=== PATIENT | male | born 1950 | race American Indian/Alaskan Native ===

== ENCOUNTER 2018-02-28 07:30 | Outpatient (CLI) | payer MEDICARE, BC | END 2018-02-28 07:31 | disposition home or self-care (01) | LOC: RT 07:30 | PROVIDERS: ATTEND Internal Medicine Cardiovascular Disease | DX: I48.1 Persistent atrial fibrillation (principal) | CPT/HCPCS: 93005 ==

== ENCOUNTER 2020-03-20 20:48 | Emergency (ER) | payer MEDICARE, BC ==
--- NOTE | 2020-03-20 21:05 | ED Physician Documentation ---
PD HPI CHEST PAIN - Stated complaint Stated Complaint: CP - Chief complaint Chief Complaint: Cardiac - History obtained from History obtained from: Patient - History of Present Illness Timing - onset: Today (this afternoon) Timing - onset during: Light activity Timing - details: Abrupt onset, Intermittant Pain level now: 1 Quality: Dull Location: Left chest Radiation: Other (does not radiate) Improved by: Rest Worsened by: Exertion Associated symptoms: No: Shortness of air, Diaphoresis, Nausea, Vomiting, Feeling faint / dizzy, Cough Similar symptoms before: Has not had sx before Recently seen: Not recently seen - Additional information Additional information: c/o left-sided chest pain, episodic since this afternon, onset when he was walking down steps at home. Episodes are generally improved with rest, exacerbated with exertion. He took 325mg ASA tonight and an extra dose of metoprolol (usually 25mg QAM, but took a dose tonight for second dose of the day; he did so because sometimes he has chest discomfort with his atrial fibrillation). Review of Systems Constitutional: denies: Fever Cardiac: reports: Chest pain / pressure. denies: Palpitations, Pedal edema, Calf pain Respiratory: reports: Reviewed and negative GI: reports: Reviewed and negative Musculoskeletal: denies: Extremity swelling PD PAST MEDICAL HISTORY - Past Medical History Past Medical History: Yes Cardiovascular: Atrial fibrillation - Past Surgical History Past Surgical History: No - Present Medications Home Medications: Ambulatory Orders Medication Instructions Recorded Confirmed Metoprolol Succinate [Toprol Xl] 1 tab PO DAILY 03/20/20 03/20/20 - Allergies Allergies/Adverse Reactions: Allergies Allergy/AdvReac Type Severity Reaction Status Date / Time No Known Drug Allergies Allergy Verified 03/20/20 20:59 - Living Situation Living Arrangement: reports: At home PD ED PE NORMAL - Vitals Vital signs reviewed: Yes - General General: Alert and oriented X 3, No acute distress, Well developed/nourished - HEENT HEENT: Moist mucous membranes - Neck Neck: Supple, no meningeal sign - Cardiac Cardiac: No murmur - Respiratory Respiratory: No respiratory distress, Clear bilaterally - Abdomen Abdomen: Soft, Non tender - Extremities Extremities: No edema PD ED PE EXPANDED - Cardiac Cardiac: Regular Rate, Irregularly irregular Results - Vitals Vitals: Vital Signs - 24 hr 10/03/20 10/03/20 10/03/20 20:50 21:50 22:30 Temperature 37.3 C Heart Rate 60 69 64 Respiratory 18 18 24 Rate Blood Pressure 177/103 H 145/73 H 158/70 H O2 Saturation 99 96 97 03/20/20 23:08 Temperature Heart Rate 71 Respiratory 16 Rate Blood Pressure 151/72 H O2 Saturation 99 Oxygen O2 Source Room air - EKG (time done) No standard instances Rate: Rate (enter#) (57) Rhythm: Atrial fibrillation [place]: Normal Intervals: Normal IA QRS: Normal Ischemia: Normal ST segments - Labs Labs: Laboratory Tests 03/20/20 03/20/20 03/20/20 21:08 21:08 21:08 WBC 7.8 RBC 4.97 Hgb 15.9 Hct 46.3 MCV 93.2 MCH 32.0 H MCHC 34.3 RDW 12.7 Plt Count 209 MPV 11.4 Neut # (Auto) 3.8 Lymph # (Auto) 2.7 [place] # (Auto) 0.8 Eos # (Auto) 0.4 Baso # (Auto) 0.1 Absolute Nucleated RBC 0.00 Nucleated RBC % 0.0 PT 13.6 H INR 1.2 APTT 32.4 Sodium 139 Potassium 3.9 Chloride 100 L Carbon Dioxide 27 Anion Gap 12.0 BUN 20 Creatinine 1.2 Estimated GFR (MDRD) 60 L Glucose 96 Calcium 9.7 Total Bilirubin 1.3 H AST 29 ALT 33 Alkaline Phosphatase 62 Troponin I High Sens Total Protein 7.8 Albumin 4.7 Globulin 3.1 Albumin/Globulin Ratio 1.5 Lipase 62 H 03/20/20 21:08 WBC RBC Hgb Hct MCV MCH MCHC RDW Plt Count MPV Neut # (Auto) Lymph # (Auto) [place] # (Auto) Eos # (Auto) Baso # (Auto) Absolute Nucleated RBC Nucleated RBC % PT INR APTT Sodium Potassium Chloride Carbon Dioxide Anion Gap BUN Creatinine Estimated GFR (MDRD) Glucose Calcium Total Bilirubin AST ALT Alkaline Phosphatase Troponin I High Sens 5.6 Total Protein Albumin Globulin Albumin/Globulin Ratio Lipase - Rads (name of study) chest xray Radiology: Prelim report reviewed, See rad report PD MEDICAL DECISION MAKING - ED course Complexity details: reviewed results, re-evaluated patient, considered differential, d/w patient ED course: patient says he is chronically in atrial fibrillation and that he and his physician agreed with no anticoagulant rx. Symptoms resolved prior to arrival, and patient remained asymptomatic during ED stay. Departure - Departure Disposition: 01 Home, Self Care Clinical Impression: Chest pain Qualifiers: Chest pain type: unspecified Qualified Code(s): R07.9 - Chest pain, unspecified Condition: Good Instructions: ED Chest Pain Atypical Unkn Cause Follow-Up: Juarez Ruvalcaba MD [Primary Care Provider] - Within 1 week Discharge Date/Time: 03/20/20 23:10
[2020-03-20 21:16] LABS: BASOPHILS # (AUTO) 0.1 10^3/uL (0.0-0.1); BASOPHILS % (AUTO) 0.8 %; EOSINOPHILS # (AUTO) 0.4 10^3/uL (0.0-0.7); EOSINOPHILS % (AUTO) 4.8 %; HGB - HEMOGLOBIN 15.9 g/dL (14.0-18.0); LYMPHOCYTES # (AUTO) 2.7 10^3/uL (1.5-3.5); LYMPHOCYTES % (AUTO) 34.6 %; MEAN CORPUSCULAR HGB CONC 34.3 g/dL (32.0-36.0); MEAN CORPUSCULAR VOLUME 93.2 fL (80.0-94.0); MEAN PLATELET VOLUME 11.4 fL (7.4-11.4); MONOCYTES # (AUTO) 0.8 10^3/uL (0.0-1.0); MONOCYTES % (AUTO) 10.2 %; NEUTROPHILS # (AUTO) 3.8 10^3/uL (1.5-6.6); NEUTROPHILS % (AUTO) 49.3 %; PLT - PLATELET COUNT 209 10^3/uL (130-450); RED BLOOD COUNT 4.97 10^6/uL (4.70-6.10); RED CELL DISTRIBUTION WIDTH 12.7 % (12.0-15.0); WHITE BLOOD COUNT 7.8 x10^3/uL (4.8-10.8)
[2020-03-20 21:23] LABS: INR 1.2 (0.8-1.2); PT - PROTHROMBIN TIME 13.6 secs (9.9-12.6)
[2020-03-20 21:30] LABS: ALBUMIN 4.7 g/dL (3.2-5.5); ALBUMIN/GLOBULIN RATIO 1.5 (1.0-2.2); BILIRUBIN,TOTAL 1.3 mg/dL (0.2-1.0); CALCIUM 9.7 mg/dL (8.5-10.3); CREATININE 1.2 mg/dL (0.6-1.2); TOTAL PROTEIN 7.8 g/dL (6.7-8.2)
[2020-03-20 21:31] LABS: PARTIAL THROMBOPLASTIN TIME 32.4 secs (24.9-33.3)
--- NOTE | 2020-03-20 21:51 | XRAY Report ---
PROCEDURE: Chest 2 View X-Ray INDICATIONS: chest pain TECHNIQUE: 4 views of the chest. COMPARISON: None. FINDINGS: Surgical changes and devices: None. Lungs and pleura: No pleural effusions or pneumothorax. Lungs are clear. Mediastinum: Mediastinal contours are normal. Heart size is normal. Bones and chest wall: No suspicious bony abnormalities. Soft tissues appear unremarkable. Degenera tive changes are seen in the thoracic spine. No definite displaced rib fracture is seen. IMPRESSION: No acute cardiopulmonary abnormality. Reviewed by: Bud Figueroa MD on 03/20/2020 9:50 PM PDT Approved by: Bud Figueroa MD on 03/20/2020 9:50 PM PDT Station ID: [id number]
[2020-03-20 23:09] VITALS: BP 151/72
== END 2020-03-20 23:10 | disposition home or self-care (01) ==
LOC: ED 20:48
DX: R07.9 Chest pain, unspecified (principal); I48.20 Chronic atrial fibrillation, unspecified
CPT/HCPCS: 36415; 71046; 80053; 83690; 84484; 85025; 85610; 85730; 93005; 99284

== ENCOUNTER 2020-05-25 07:00 | Outpatient (CLI) | payer MEDICARE, BC ==
[2020-05-25 16:08] LABS: CALCIUM 9.5 mg/dL (8.5-10.3); CREATININE 1.1 mg/dL (0.6-1.2)
== END 2020-05-25 23:59 | disposition home or self-care (01) ==
LOC: LAB 07:00
PROVIDERS: ATTEND Internal Medicine
DX: R10.9 Unspecified abdominal pain (principal)
CPT/HCPCS: 36415; 80048

== ENCOUNTER 2020-05-26 14:21 | Outpatient (CLI) | payer MEDICARE, BC ==
[2020-05-26] MEDS ORDERED: IOVERSOL 320 100 ML VIAL IVP ONE ×2 (14:38→15:22)
[2020-05-26] MEDS ORDERED: IOVERSOL 320 50 ML VIAL ONE (14:38)
[2020-05-26] MEDS ORDERED: IOVERSOL 320 50 ML VIAL PO ONE (15:21)
--- NOTE | 2020-05-26 15:48 | CT Report ---
PROCEDURE: Abdomen/Pelvis W INDICATIONS: LT INGUINAL HERNIA CONTRAST: IV CONTRAST: Optiray 320 ml: 100 PO CONTRAST: Optiray 320 ml50 TECHNIQUE: After the administration of contrast, 5 mm thick sections acquired from the diaphragms to the symphy sis. 5 mm thick coronal and sagittal reformats were acquired. For radiation dose reduction, the fol lowing was used: automated exposure control, adjustment of mA and/or kV according to patient size. COMPARISON: None. FINDINGS: Image quality: Excellent. ABDOMEN: Lung bases: Lung bases are clear. Heart size is normal. Solid organs: Hepatic foci statistically representing cysts although technically indeterminate due to small size. S pleen unremarkable Gallbladder contracted otherwise unremarkable Biliary system is non dilated. Pancreas enhances norm ally. No adrenal nodules. Kidneys demonstrate normal size and enhancement, without hydronephrosis. Peritoneum and bowel: Bowel loops demonstrate normal wall thickness and caliber. No free fluid or a ir. Colonic diverticulosis incidentally noted. Appendix is normal. Nodes and vessels: No retroperitoneal or mesenteric adenopathy by size criteria. Aorta and inferior vena cava are normal in size. Miscellaneous: No ventral hernias. PELVIS: Genitourinary: Bladder wall thickness is normal. Miscellaneous: No inguinal hernias or adenopathy. Bones: Spondylosis and facet arthropathy. No vertebral body compression fractures. IMPRESSION: No inguinal hernia identified. Incidentally noted colonic diverticulosis Additional chronic and incidental findings as above. Reviewed by: Guanaco Malone MD on 05/26/2020 3:47 PM PST Approved by: Guanaco Malone MD on 05/26/2020 3:47 PM PST Station ID: [id number]
== END 2020-05-26 14:22 | disposition home or self-care (01) ==
LOC: DI 14:21
PROVIDERS: ATTEND Internal Medicine
DX: R10.9 Unspecified abdominal pain (principal); K57.30 Diverticulosis of large intestine without perforation or abscess without bleeding
CPT/HCPCS: 74177; Q9967

== ENCOUNTER 2020-06-17 17:05 | Outpatient (CLI) | payer MEDICARE, BC | END 2020-06-17 17:06 | disposition home or self-care (01) | LOC: COV 17:05 | PROVIDERS: ATTEND Surgery | DX: Z01.812 Encounter for preprocedural laboratory examination (principal); K40.20 Bilateral inguinal hernia, without obstruction or gangrene, not specified as recurrent; Z20.828 Contact with and (suspected) exposure to other viral communicable diseases ==

== ENCOUNTER 2020-06-24 10:11 | Day surgery (SDC) | payer MEDICARE, BC ==
[2020-06-24] MEDS ORDERED: LACTATED RINGERS 1,000 ML IV ONE ×3 (10:25→16:45)
[2020-06-24] MEDS ORDERED: ceFAZolin 2 GM/50 ML 2 GM/50 ML BAG IV ONE (10:30)
--- NOTE | 2020-06-24 11:54 | ANESTHESIA ---
Pre-Anesthesia VS, & Labs - Diagnosis inguinal hernia - Procedure bilateral inguinal hernia repair Vital Signs: Temp Pulse Resp BP Pulse Ox 36.3 C L 73 16 160/92 H 98 06/24/20 10:31 06/24/20 10:31 06/24/20 10:31 06/24/20 10:31 06/24/20 10:31 Height: 6 ft 8 in Weight (kg): 105 kg Body Mass Index: 25.4 BMI Classification: Overweight - NPO >8 hours - Lab Results Lab results reviewed: Yes Home Medications and Allergies Metoprolol Succinate [Toprol Xl] 1 tab PO DAILY 03/20/20 Allergies/Adverse Reactions: Allergies Allergy/AdvReac Type Severity Reaction Status Date / Time No Known Drug Allergies Allergy Verified 03/20/20 20:59 Anes History & Medical History - Anesthetic History Anesthesia Complications: reports: No previous complications Family history of Anesthesia Complications: Denies Family history of Malignant Hyperthermia: Denies - Medical History Cardiovascular: reports: Atrial fibrillation Pulmonary: reports: None Gastrointestinal: reports: None Urinary: reports: None Musculoskeletal: reports: None Endocrine/Autoimmune: reports: None Skin: reports: None Smoking Status: Never smoker - Surgical History Eyes Ears Nose Throat (EENT): Tonsil/Adenoidectomy Results - EKG Results EKG Comparison: Reviewed EKG Exam General: Alert, Oriented x3, Cooperative, No acute distress Dental: WNL Mouth Openin Fingerbreadth Neck Mobility: Normal Mallampati classification: II Respiratory: Lungs clear, Normal breath sounds, No respiratory distress, No accessory muscle use Cardiovascular: Normal S1, Normal S2 Plan Anesthesia Type: General Consent for Procedure(s) Verified and Reviewed: Yes Code Status: Attempt Resuscitation ASA classification: 2-Mild systemic disease Is this case an emergency?: No
[2020-06-24] MEDS ORDERED: LIDOCAINE-MPF 2% 5 ML VIAL ONE (12:01)
[2020-06-24] MEDS ORDERED: fentaNYL 100 MCG/2 ML VIAL ONE ×2 (12:01→13:05)
[2020-06-24] MEDS ORDERED: KETOROLAC 30 MG/ML VIAL ONE (12:02)
[2020-06-24] MEDS ORDERED: PROPOFOL 200 MG/20 ML VIAL IVP ONE (12:02)
[2020-06-24] MEDS ORDERED: DEXAMETHASONE 4 MG/ML VIAL ONE (12:02)
[2020-06-24] MEDS ORDERED: ONDANSETRON 4 MG/2 ML VIAL ONE (12:02)
[2020-06-24] MEDS ORDERED: BUPIVACAINE 0.5% PF 30 ML VIAL SUBQ ONE ×2 (12:08→14:22)
[2020-06-24] MEDS ORDERED: BUPIVACAINE 0.5% PF 30 ML VIAL ONE (12:08)
[2020-06-24] MEDS ORDERED: GLYCOPYRROLATE 1 MG/5 ML VIAL ONE (12:47)
[2020-06-24] MEDS ORDERED: ePHEDrine 50 MG/ML VIAL IVP ONE (13:05)
[2020-06-24] MEDS ORDERED: PHENYLEPHRINE 10 MG/ML VIAL ONE (13:27)
[2020-06-24] MEDS ORDERED: MORPHINE 2 MG/ML CARPUJECT IVP PRN (14:55)
[2020-06-24] MEDS ORDERED: NALOXONE 0.4 MG/ML VIAL IVP PRN (14:55)
[2020-06-24] MEDS ORDERED: ONDANSETRON 4 MG/2 ML VIAL IVP PRN (14:55)
[2020-06-24] MEDS ORDERED: fentaNYL 100 MCG/2 ML VIAL IVP PRN (14:55)
[2020-06-24] MEDS ORDERED: ePHEDrine 50 MG/ML VIAL IVP PRN (14:55)
[2020-06-24] MEDS ORDERED: HYDROmorphone 0.5 MG/0.5 ML SYRINGE IVP PRN (14:55)
[2020-06-24] MEDS ORDERED: METOCLOPRAMIDE 10 MG/2 ML VIAL IVP PRN (14:55)
[2020-06-24] MEDS ORDERED: ATROPINE ABBOJECT 1 MG/10 ML SYRINGE IVP PRN (14:55)
--- NOTE | 2020-06-24 14:55 | OPERATIVE REPORT ---
Operative Report - General Procedure Date: 06/24/20 Planned Procedure: BILATERAL inguinal herniorraphy Pre-Op Diagnosis: BILATERAL inguinal hernia Procedure Performed: BILATERAL indirect inguinal herniorrhaphy with mesh BILATERAL excision card lipoma Post Op Diagnosis: BILATERAL indirect inguinal hernias with BILATERAL cord lipomas - Procedure Note Primary Surgeon: Onel Frank MD Anesthesia Provider: GLORIA Perez Anesthesia Technique: General LMA, Local (30 mL of 1/2% marcaine) IV Fluids (mL): 1,600 Estimated Blood Loss (mL): 5 Drain/Tube Type: Other (None.) Indications: As above. Complications: None. - Other Other Information/Narrative: Dictation service ([employer]) has been terminated for this software - please refer to detailed operative report done separately.
[2020-06-24] MEDS ORDERED: LACTATED RINGERS 1,000 ML IV SCH (15:00)
--- NOTE | 2020-06-24 15:57 | ANESTHESIA POST OP EVALUATION ---
Anesthesia Post Eval - Post Anesthesia Eval Vitals: Last Vital Signs Temp 36.3 C L 06/24/20 15:15 Pulse 80 06/24/20 15:31 Resp 15 06/24/20 15:31 BP 155/79 H 06/24/20 15:31 Pulse Ox 100 06/24/20 15:31 CV Function Including HR & BP: positive: Stable Pain Control: positive: Satisfactory Nausea & Vomiting: positive: Negative Mental Status: positive: Patient Participates Respiratory Status: Airway Patent Hydration Status: Satisfactory Anesthesia Complications: positive: None
[2020-06-24] MEDS: HYDROcod/ACETAM 5/325 MG TABLET PO PRN (16:21)
[2020-06-24] MEDS ORDERED: HYDROcod/ACETAM 5/325 MG TABLET ONE (16:31)
[2020-06-24] MEDS ORDERED: LIDOCAINE 2% URO-JET 5 ML SYRINGE UR ONE ×2 (17:46→19:48)
[2020-06-24] MEDS ORDERED: LIDOCAINE JELLY 2% 6 ML JEL.PF.APP UR ONE (19:00)
[2020-06-24] MEDS: METOPROLOL SUCCINATE 25 MG TABLET PO SCH (21:27)
[2020-06-25] MEDS: HYDROcod/ACETAM 5/325 MG TABLET PO PRN ×2 (00:45→08:20)
[2020-06-25] MEDS ORDERED: METOPROLOL SUCCINATE 25 MG TABLET PO SCH (09:00)
[2020-06-25] MEDS: METOPROLOL SUCCINATE 25 MG TABLET PO SCH (09:17)
[2020-06-25 11:20] VITALS: BP 132/64
--- NOTE | 2020-06-25 11:54 | PROVIDER PROGRESS NOTE ---
Subjective - General Procedure Date: 06/24/20 Post Op Days: 1 Procedure Performed: BILATERAL indirect inguinal herniorrhaphy and excision cord lipomas - Review of Systems Wound/Incisions: positive: Healing well, Other (No dressing - Dermabond used.) General: positive: No symptoms HEENT: positive: No symptoms Pulmonary: positive: No symptoms Cardiovascular: positive: No symptoms Gastrointestinal: positive: No symptoms Genitourinary: positive: Frequency, Burning (Minimal.), Retention (Retention seems to have resolved this AM.) Musculoskeletal: positive: No symptoms Skin: positive: No symptoms Psychiatric: positive: No symptoms Objective - Patient Data Reviewed Vital Signs: Yes Vital Signs: Vital Signs x48h Temp Pulse Resp BP Pulse Ox 06/25/20 11:20 36.9 C 75 18 132/64 H 100 06/25/20 08:41 36.8 C 64 18 139/56 H 100 06/25/20 04:38 36.4 C L 60 16 136/74 H 97 Weight: Weight 06/23/20 06/24/20 06/25/20 23:59 23:59 23:59 Weight (kg) 105 kg Intake & Output: Intake and Output Totals x24h 06/23/20 06/24/20 06/25/20 23:59 23:59 23:59 Intake Total 400 Output Total 2905 Balance -2505 - Current Medications Current Medications: Current Medications Generic Name Dose Route Start Last Admin Trade Name Freq PRN Reason Stop Dose Admin Hydrocodone Bitart/Acetaminophen 1 tab 06/24/20 15:00 06/25/20 08:20 Hydrocod/Acetam 5/325 Mg Tablet PO 0.5 tab Q4HR PRN Administration PAIN Metoprolol Succinate 25 mg 06/24/20 19:50 06/25/20 09:17 Metoprolol Succinate 25 Mg Tablet PO Not Given DAILY WILLIAMS - Physical Exam Wound/Incisions: positive: Healing well, Other (No dressing - Dermabond. No erythema. No ecchymosis. No drainage.) General Appearance: positive: No acute distress Eyes Bilateral: positive: Conjunctivae nml ENT: positive: No signs of dehydration Neck: positive: Trachea midline Respiratory: positive: No respiratory distress Cardiovascular: positive: Other Skin: positive: Color nml Extremities: positive: Non-tender, Full ROM, Nml appearance Neurologic/Psychiatric: positive: Oriented x3 ABX Reporting Has patient been on IV antibiotics over the past 48 hours?: Yes Impression/Plan - Problem List Problem List: Patient had to stay overnight for extended recovery due to urinary retention. Had straight caths of 800 mL and 1200 mL. Patient does get up several times a night to urinate so prostatism is likely (BPH) - as a resulkt I will send him home with a prescription of Flomax 10 tabs to help in the immediate postopera tive period and I think he has an appointment with his primary physician early next week where he can discuss this further. I asked him to contact me with any questions or concerns.
--- OUTSIDE RECORDS SUMMARY | 2020-06-30 01:05 | EXTERNAL MEDICAL SUMMARY RPT | Continuity of Care Document ---
:1950 Demographics Phone Unavailable Preferred Language Unknown Marital Status Unknown Jehovah'S Witness Affiliation Unknown Race Unknown Ethnic Group Unknown Author Organization [facility] Address [address] [phone] Phone Care Team Providers Name Role Phone Ruvalcaba Unavailable Unavailable Problems date description facility 2020-03-20 20:48 CHEST PAIN, UNSPECIFIED [facility] 2020-03-20 20:48 CHRONIC ATRIAL FIBRILLATION, [facility] UNSPECIFIED 2020-05-25 07:[address] [facility] 2020-05-26 14:21 DVRTCLOS OF LG INT W/O PERFORATION [facility] OR ABSCESS W/O BLEEDING 2020-05-26 14:[address] [facility] 2020-05-26 15:[address] [facility] Allergies date description facility No Known Drug Allergies [facility] S[facility] DO[facility]INE [facility]AN [facility] HORSE-DERIVED PRODUCTS [facility] ed[facility] Center NITROFURAN DERIVATIVES [facility] PENICILLINS [facility] SULFA ANTIBIOTICS [facility] NO KNOWN ALLERGIES [facility] NO ALLERGY INFORMATION AVAILABLE [facility] NO KNOWN ALLERGIES [facility] BEE VENOM PROTEIN (HONEY BEE) [facility] Results Social History date description facility [phone]
== END 2020-06-25 13:10 | disposition home or self-care (01) ==
LOC: SDS 10:11 → MS2 18:10 → SDS 06-25 13:10
PROVIDERS: ATTEND Surgery
PROC: 0VBH0ZZ Excision of Bilateral Spermatic Cords, Open Approach (ICD-10-PCS; 2020-06-24)
PROC: 0YUA0JZ Supplement Bilateral Inguinal Region with Synthetic Substitute, Open Approach (ICD-10-PCS; principal; 2020-06-24 11:30)
DX: K40.20 Bilateral inguinal hernia, without obstruction or gangrene, not specified as recurrent (principal); I48.91 Unspecified atrial fibrillation; E66.3 Overweight; Z68.25 Body mass index [BMI] 25.0-25.9, adult; Z79.899 Other long term (current) drug therapy
CPT/HCPCS: 49505; 51701; A9270; C1781; J0690; J7120

== ENCOUNTER 2023-02-13 10:29 | Outpatient (CLI) | payer MEDICARE, BC ==
[2023-02-13 11:02] LABS: CALCIUM 9.7 mg/dL (8.5-10.3); CREATININE 1.2 mg/dL (0.6-1.3); POTASSIUM 4.4 mmol/L (3.5-4.5)
== END 2023-02-13 10:30 | disposition home or self-care (01) ==
LOC: LAB 10:29
PROVIDERS: ATTEND Internal Medicine Cardiovascular Disease
DX: I10 Essential (primary) hypertension (principal)
CPT/HCPCS: 36415; 80048

== ENCOUNTER 2023-06-13 14:20 | Outpatient (CLI) | payer MEDICARE, BC | END 2023-06-13 14:21 | disposition home or self-care (01) | LOC: LAB 14:20 | PROVIDERS: ATTEND Family Medicine | DX: M10.9 Gout, unspecified (principal) | CPT/HCPCS: 36415; 84550 ==

== ENCOUNTER 2023-06-28 11:38 | Outpatient (CLI) | payer MEDICARE, BC ==
[2023-06-28 12:07] LABS: BILIRUBIN,URINE NEGATIVE (NEGATIVE); GLUCOSE, URINE (UA) NEGATIVE (NEGATIVE); KETONES,URINE (UA) NEGATIVE (NEGATIVE); LEUKOCYTE ESTERASE, URINE NEGATIVE (NEGATIVE); NITRITE,URINE NEGATIVE (NEGATIVE); OCCULT BLOOD,URINE NEGATIVE (NEGATIVE); PROTEIN,URINE NEGATIVE (NEGATIVE); UROBILINOGEN,URINE 0.2 (NORMAL) E.U./dL (NORMAL)
[2023-06-28 12:12] LABS: CLARITY,URINE CLEAR (CLEAR)
== END 2023-06-28 11:39 | disposition home or self-care (01) ==
LOC: LAB 11:38
PROVIDERS: ATTEND Family Medicine
DX: M10.9 Gout, unspecified (principal); R10.9 Unspecified abdominal pain
CPT/HCPCS: 36415; 81003; 84550